=== PATIENT | female | born 1970 | race Caucasian/White ===

== ENCOUNTER 2016-05-05 16:10 | Emergency (ER) | payer OTHER ==
[~2016-05-05] VITALS: Ht 162.6 cm; Wt 92.5 kg
[2016-05-05 16:21] VITALS: BP 141/90
[2016-05-05] MEDS ORDERED: PRON INH (16:24)
--- NOTE | 2016-05-05 16:40 | NUR ---
PATIENT PRESENTS TO ED WITH SOB . PT STATES . DENIES N/V/D; SKIN IS PINK/WARM/DRY; AAOX4 WITH EVEN AND STEADY GAIT; LUNGS CLEAR BL; HR EVEN AND REGULAR; PT DENIES ANY FEVER, CP AT THIS TIME; PATIENT STATES PAIN OF 0/10 AT THIS TIME; VSS; PATIENT POSITIONED FOR COMFORT; HOB ELEVATED; BEDRAILS UP X2; BED DOWN. ER MD MADE AWARE OF PT STATUS.
[2016-05-05] MEDS ORDERED: ALBUTEROL SULFATE/IPRATROPIU 3 ML SOL IH ONE (17:15)
[2016-05-05] MEDS ORDERED: predniSONE 20 MG TAB PO ONE (17:15)
[2016-05-05] MEDS ORDERED: ALBUTEROL 0.083% 2.5 MG/3 ML NEBU INH ONE (18:20)
--- NOTE | 2016-05-05 19:07 | NUR ---
PT SPOKE WITH MD---ADMITS BREATHING MUCH EASIER---A/O X4 AT BEDSIDE.
[2016-05-05 19:09] VITALS: BP 124/78
== END 2016-05-05 16:40 | disposition home or self-care (01) ==
LOC: MED 16:10
PROC: 3E0F7GC Introduction of Other Therapeutic Substance into Respiratory Tract, Via Natural or Artificial Opening (ICD-10-PCS; principal; 2016-05-05)
PROC: 4A02X4Z Measurement of Cardiac Electrical Activity, External Approach (ICD-10-PCS; 2016-05-05)
DX: J45.901 Unspecified asthma with (acute) exacerbation (principal); R06.00 Dyspnea, unspecified; B34.9 Viral infection, unspecified; R03.0 Elevated blood-pressure reading, without diagnosis of hypertension
CPT/HCPCS: 71020; 93005; 94640; 99285; J7512; J7613; J7620

== ENCOUNTER 2020-01-07 11:31 | Emergency (ER) | payer OTHER ==
[~2020-01-07] VITALS: Ht 162.6 cm; Wt 101.2 kg
[~2020-01-07 11:31] MED LIST: PRON INH
[2020-01-07 11:37] VITALS: BP 128/87
--- NOTE | 2020-01-07 12:10 | NUR ---
49 y/o female c/o heavy vaginal bleeding X5dehms. Pt states she had appointment with PCP 1 week ago. Pt now has pain 5/10 cramping intermittent X4days with no relief. Pt states large clots present. Denies dysuria, fever, chills. Denies PMH NKA
--- NOTE | 2020-01-07 12:12 | NUR ---
Mauro combs in EDM - 01/07/20 at 1216 by MED PT IS BEING TAKEN TO US VIA WC. WILL BE TAKEN TO ROOM 5 AFTER US DONE.
[2020-01-07 12:19] LABS: BASOPHILS % (AUTO) 0.7 % (0.0-2.0); EOSINOPHILS # (AUTO) 0.1 K/uL (0-0.4); EOSINOPHILS % (AUTO) 2.8 % (0.0-4.0); HEMATOCRIT 32.8 % (36-48); HEMOGLOBIN 11.1 g/dL (12.0-16.0); LYMPHOCYTES # (AUTO) 1.1 K/uL (2.5-16.5); LYMPHOCYTES % (AUTO) 22.4 % (20.5-51.1); MEAN CORPUSCULAR HEMOGLOBIN 30 pg (27-31); MEAN CORPUSCULAR HGB CONC 34 g/dL (33-37); MEAN CORPUSCULAR VOLUME 89.2 fL (80-94); MONOCYTES # (AUTO) 0.3 K/uL (0.8-1.0); MONOCYTES % (AUTO) 6.8 % (1.7-9.3); NEUTROPHILS # (AUTO) 3.4 K/uL (1.8-7.7); NEUTROPHILS % (AUTO) 67.3 % (42.2-75.2); PLATELET COUNT (AUTO) 257 K/uL (140-450); RED BLOOD CELL COUNT(AUTO) 3.68 MIL/uL (4.20-5.40); RED CELL DISTRIBUTION WIDTH 13.6 % (11.6-13.7)
[2020-01-07 12:37] LABS: PROTHROMBIN TIME 9.9 secs (10.8-13.4)
--- NOTE | 2020-01-07 12:38 | NUR ---
PATIENT AMBULATED TO BED 9 AT THIS TIME.
[2020-01-07 14:05] VITALS: BP 120/90
--- NOTE | 2020-01-07 14:05 | NUR ---
Patient discharged with v/s stable. Written and verbal after care instructions given and explained. Patient alert, oriented and verbalized understanding of instructions. Ambulatory with steady gait. All questions addressed prior to discharge. ID band removed. Patient advised to follow up with PMD. Rx of Motrin 800mg, Premont 5mg-325mg and Provera 10mg given. Patient also provided with US report and CD with images for follow up. Patient educated on indication of medication including possible reaction and side effects. Opportunity to ask questions provided and answered.
== END 2020-01-07 14:05 | disposition home or self-care (01) ==
LOC: MED 11:31
DX: N93.8 Other specified abnormal uterine and vaginal bleeding (principal); J45.909 Unspecified asthma, uncomplicated; Z79.899 Other long term (current) drug therapy; Z98.890 Other specified postprocedural states
CPT/HCPCS: 36415; 76830; 81025; 84702; 85025; 85610; 85730; 99284